=== PATIENT | male | born 1955 | race Caucasian/White ===

== ENCOUNTER 2017-11-24 06:05 | Inpatient (IN) | payer BC ==
--- NOTE | 2017-11-02 13:30 | HP ---
DATE OF ADMISSION: 11/24/2017 DATE OF SURGERY: 11/24/2017 REASON FOR ADMISSION: Chronically incarcerated enlarging complex ventral hernia. BRIEF HISTORY: This is a 59-year-old gentleman who I initially evaluated in October 2014 for a complex chronically incarcerated ventral hernia. At that time, I recommended he undergo a repair; however, due to personal issues, he failed to follow through. He was then re-evaluated by me in August 2015 since the hernia has gotten larger, and he wanted to discuss pros and cons of repair. Due to personal issues once again, he failed to follow through with operative repair. It is now August 2016, and the patient states the hernia has gotten much larger, and he has had bouts of pain in the area. He now wishes to have this hernia repaired. He denies having nausea or vomiting. No change in bowel habits. PAST MEDICAL HISTORY: No coronary artery disease, hypertension, or diabetes. PAST SURGICAL HISTORY: None. MEDICATIONS: None. ALLERGIES: None. SOCIAL HISTORY: The patient does not smoke. He drinks socially. PHYSICAL EXAMINATION: Lungs: Clear. Heart: Regular. Abdomen: Soft, nontender, and nondistended. He has a large soft tissue mass in the upper abdomen. The mass is approximately the size of a baseball. The skin overlying the mass is mildly thin consistent with chronic ischemia. He has a distorted umbilicus. IMPRESSION/PLAN: Chronically incarcerated enlarging ventral hernia, abdominal pain. This is a gentleman who had at least a 8-[id number]-ooulbzd of having this ventral hernia. Over this time course, the hernia clearly has gotten larger, and now he wishes to have this repaired since he is becoming even more symptomatic. We will plan for an operative repair of this hernia. The patient is scheduled for open ventral hernia repair with mesh. Component separation most likely needed at the time of surgery as well. Miguelina MARTINES [id number] cc: Kian Patterson MD
[2017-11-19 15:11] VITALS: BMI 27.1
[2017-11-24] MEDS ORDERED: TAMSULOSIN HCL 0.4 MG CAP.ER.24H (FP) ONE (06:25)
[2017-11-24] MEDS ORDERED: DEXAMETHASONE SOD PHOSPHATE/PF 10 MG/ML SDV ONE (07:40)
[2017-11-24] MEDS ORDERED: BUPIVACAINE HCL/PF (5 MG/ML) 30 ML VIAL IJ ONE (07:40)
[2017-11-24] MEDS ORDERED: MIDAZOLAM HCL 2 MG/2 ML SINGLE DOSE VIAL ONE (07:40)
[2017-11-24] MEDS ORDERED: PROPOFOL 20 ML ONE ×3 (07:50→08:11)
[2017-11-24] MEDS ORDERED: fentaNYL CITRATE 250 MCG/5 ML VIAL ONE (07:50)
[2017-11-24] MEDS ORDERED: ROCURONIUM BROMIDE 50 MG/5 ML VIAL ONE ×2 (07:51→08:37)
[2017-11-24] MEDS ORDERED: SUCCINYLCHOLINE CHLORIDE 200 MG/10 ML VIAL ONE (08:00)
[2017-11-24] MEDS ORDERED: ONDANSETRON 4 MG/2 ML VIAL ONE ×2 (08:37→09:29)
[2017-11-24] MEDS ORDERED: DEXAMETHASONE SOD PHOSPHATE 4 MG/1 ML VIAL ONE ×2 (08:37→09:13)
[2017-11-24] MEDS ORDERED: ONDANSETRON 4 MG/2 ML VIAL IVPUSH PRN ×2 (08:55→10:15)
[2017-11-24] MEDS ORDERED: ePHEDrine SULFATE 50 MG/1 ML AMPULE ONE (08:58)
[2017-11-24] MEDS ORDERED: LACTATED RINGERS SOLUTION 1,000 ML IV SCH (09:00)
[2017-11-24] MEDS ORDERED: BUPIVACAINE HCL/PF 2.5 MG/ML - 30 ML VIAL IJ ONE (09:13)
[2017-11-24] MEDS ORDERED: NEOSTIGMINE METHYLSULFATE 0.5 MG/ML - 10 ML MDV ONE (09:27)
[2017-11-24] MEDS ORDERED: GLYCOPYRROLATE 0.2 MG/1 ML VIAL ONE (09:29)
[2017-11-24] MEDS ORDERED: morphine CARPU-JECT 10 MG/1 ML DISP.SYRIN IVPB PRN (10:15)
[2017-11-24] MEDS ORDERED: ACETAMINOPHEN 325 MG TABLET (FP) PO PRN (10:15)
[2017-11-24] MEDS ORDERED: HYDROmorphone HCL CARPU-JECT 1 MG/1 ML DISP.SYRIN ONE (10:16)
[2017-11-24] MEDS: HYDROmorphone HCL CARPU-JECT 1 MG/1 ML DISP.SYRIN IVPUSH PRN ×2 (10:19→10:28)
[2017-11-24] MEDS ORDERED: IBUPROFEN 800 MG/8 ML IJ IVPB ONE (10:43)
[2017-11-24] MEDS: IBUPROFEN 800 MG/8 ML IJ IVPB SCH ×3 (10:43→23:47)
[2017-11-24] MEDS: D5-1/2NS+20 MEQ KCL - 20 MEQ/1,000 ML INFUS.BAG IV SCH (11:30)
--- NOTE | 2017-11-24 11:31 | OP ---
DATE OF OPERATION: 11/24/2017 PREOPERATIVE DIAGNOSIS: Chronically incarcerated enlarging complex ventral hernia. POSTOPERATIVE DIAGNOSIS: Chronically incarcerated enlarging complex ventral hernia. PROCEDURE: Open repair of chronically enlarging complex incarcerated ventral hernia with mesh, open bilateral component separation, partial omentectomy, rectus sheath block (administered by the senior it assistant). SURGEON: Slava Forrest MD BREAKER UNIT ASSEMBLER: Marin Cid MD ANESTHESIA: Jennyfer Tripathi MD (general). ESTIMATED BLOOD LOSS: Minimal. SPECIMEN: Portion of omentum. INDICATIONS/PROCEDURE: This is a 51-year-old gentleman who was initially evaluated in 2014 for a large complex ventral hernia. Patient was recommended to undergo repair at that time. However, due to personal issues, he was unable to do so, and over the ensuing 3 years, the hernia has gotten significantly worse and larger. He now has pain in the area and wishes to have this repaired. DESCRIPTION OF PROCEDURE: Patient was identified and appropriately positioned on the operating room table. After placement of general anesthesia, the abdomen was prepped and draped in the usual sterile fashion with ChloraPrep. A midline incision was made deep in the subcutaneous tissue. The hernia was identified in the subcutaneous tissue and dissected circumferentially down to the fascial level. The hernia was chronically incarcerated and due to its large incarcerated contents, the sac was opened, and in doing so, the patient had a sliding component, and a portion of the omentum was densely adherent to the hernia sac. The omentum had to be partially divided to resect the sac and reduce the hernia. The omentum was taken between clamps, divided, and tied with 0 Vicryl sutures. The specimen was handed off as hernia sac and portion of omentum. At this point, the abdomen was entered. The retrorectus space was entered on the patients right side by dividing the posterior rectus sheath. The sheath was then opened bluntly out laterally to the perforating vessels. The perforating vessels identified, and the fascia just medial to the perforating vessels was sharply divided, and the transversus was and released from the obliques and rectus junction. This was taken laterally out to the level of the anterior iliac spine and superiorly and inferiorly approximately 4-5 inches above and below the actual defect. The myofascial separation was completed on the right side, and a similar approach was done on the left side. The left retrorectus space was entered by dividing the posterior sheath. This space developed bluntly onto the perforating vessels. The fascia just medial to the perforating vessels was subsequently gently scored, and the transversus was divided from the obliques as well as the rectus at this level, and again, it was taken 4-5 inches above and below the actual defect. The midline defect was then recreated with a running 3-0 locking Maxon suture. The defect measured in a large 15 x 15 and a 10 x 15 piece of Phasix was used for the operative repair. The 15 x 15 was the Versatex ProGrip. The 2 pieces of mesh were sewn together with interrupted 3-0 Vicryl sutures. The Phasix was placed on the transversus side, and the ProGrip directly against the musculature of the mesh, seated out laterally and superiorly with the AbsorbaTack. The patient was then placed through 50 mmHg to seat the ProGrip. The mesh itself was irrigated. The operative field noted to be hemostatic. The midline fascia reapproximated with a running No. 1 PDS suture. The subcutaneous space was irrigated, and a 10 flat SAUL placed, brought through a separate stab incision in the subcutaneous tissue. The skin was all closed with tarik followed by Dermabond. At the conclusion of the case, sponge and instrument counts were correct. ATTESTATION: Brief operative note handwritten on the preprinted form. Prior to closure of the rectus sheath, the patient underwent injection of total of 40 mL of 0.25% Marcaine and 4 mg of Decadron as a rectus sheath block. This was placed directly into the rectus sheath on both sides by the senior it assistant. Miguelina MARTINES [id number] cc: Dr. Kian Patterson
[2017-11-25] MEDS: oxyCODONE HCL 5 MG TABLET PO PRN ×2 (02:30→12:26)
[2017-11-25] MEDS: IBUPROFEN 800 MG/8 ML IJ IVPB SCH ×2 (05:00→11:55)
[2017-11-25] MEDS: D5-1/2NS+20 MEQ KCL - 20 MEQ/1,000 ML INFUS.BAG IV SCH (09:17)
[2017-11-25] MEDS ORDERED: ENOXAPARIN NA (PORCINE) 40 MG/0.4 ML DISP.SYRIN SQ SCH (10:00)
[2017-11-25] MEDS ORDERED: amLODIPine BESYLATE 10 MG TABLET (FP) PO SCH (10:00)
[2017-11-25] MEDS ORDERED: PANTOPRAZOLE SODIUM 40 MG VIAL IVPUSH SCH (10:00)
--- NOTE | 2017-11-25 12:04 | DS ---
DATE OF ADMISSION: 11/24/2017 DATE OF DISCHARGE: 11/25/2017 ADMITTING DIAGNOSIS: Complex abdominal wall hernia. DISCHARGE DIAGNOSIS: Complex abdominal wall hernia. BRIEF HISTORY: A 62-year-old male who presented to [facility] for surgical management of a complex abdominal wall hernia. He underwent repair of this hernia utilizing mesh as well as component separation, myofascial release, and abdominal wall reconstruction. Please reference Dr. Slava Forrest's operative report for further details. He was admitted, and he is being discharged home today, November 25. He is tolerating diet, voiding, and ambulating. He will go ahead with his Ihsan-Acevedo drain. He will go ahead with a new prescription for Percocet, which he will take as needed for pain. He will resume his Norvasc blood pressure medication. He is okay to walk, okay to climb stairs. He will not lift anything more than 20 [address] is not [address]. He will likely require 2-4 weeks off work. He will follow with Dr. Forrest next week to be evaluated for drain removal. At the time of his discharge, his dressing is dry, and his binder is in place. DO ARTURO MCKINNEY/[id number]
--- NOTE | 2017-11-25 13:01 | PN ---
Progress Note (short form) - Note Progress Note: 62M POD1 s/p bilateral component separation, open repair complex ventral hernia under GA-ETT. Pt states that pain is well controlled, reports no anesthetic complications. AVSS. Continue current regimen.
[2017-11-25 13:46] VITALS: BP 135/66; PULSE 77; TEMP 97.1
--- NOTE | 2017-11-26 15:45 | PATH ---
Surgical Pathology Report Patient Name: ADRIANA FOX Med. Rec. #: [id number] /Age/Gender: 1955 (Age: 62) / M Account: [id number] Location: [facility] MED-SURG Taken: 11/24/2017 Received: 11/24/2017 Reported: 11/26/2017 Physicians: Slava Forrest Specimen(s) Received PORTION OF HERNIA SAC WITH ENCARCERATED OMENTUM Clinical History Ventral hernia without obstruction, unspecified abdominal pain Final Diagnosis SOFT TISSUE, ABDOMINAL WALL, EXCISION: FIBROMEMBRANOUS TISSUE CONSISTENT WITH HERNIA SAC, AND BENIGN ADIPOSE TISSUE. Electronically Signed Chris Aguilera M.D. Gross Description Received in formalin labeled "portion of hernia sac with incarcerated omentum," is a 10.0 x 2.3 x 1.0 cm portion of [place] fibromembranous tissue with an attached 10.5 x 10.0 x 2.2 cm portion of yellow, lobulated adipose tissue, consistent with a portion of omentum. Arabic Professor sections are submitted in one cassette. /11/25/2017 [facility]25[facility]
== END 2017-11-25 14:22 | disposition home or self-care (01) | DRG 355 ==
LOC: FASU 06:05 → FM/S 10:15 → UNDOADMIN 12:50 → FM/S 12:50
PROVIDERS: ADMIT Surgery; ATTEND Surgery
PROC: 0DBU0ZZ Excision of Omentum, Open Approach (ICD-10-PCS; 2017-11-24)
PROC: 0WUF0JZ Supplement Abdominal Wall with Synthetic Substitute, Open Approach (ICD-10-PCS; principal; 2017-11-24 08:22)
DX: K43.6 Other and unspecified ventral hernia with obstruction, without gangrene (principal)
CPT/HCPCS: 88302-TC; 94010; 94760

== ENCOUNTER 2018-01-15 08:46 | Emergency (ER) | payer BC ==
[2018-01-15 08:54] VITALS: TEMP 98; BMI 26.5
--- NOTE | 2018-01-15 09:09 | PDOC ---
History of Present Illness - General Chief Complaint: Injury Stated Complaint: LEFT FOOT PAIN Time Seen by Provider: 01/15/18 08:51 History Source: Patient Exam Limitations: No Limitations - History of Present Illness Initial Comments: 01/15/18 08:59 62-year-old male no past medical history here today complaining of left foot pain. Patient states he was walking the evening prior stepped on uneven curb and everted his foot slightly felt a cracking sensation. Was walking on it initially but this morning pain is severe also noted swelling and ecchymosis did not take anything for pain prior to arrival denies any associated knee or hip pain. Pain is moderate worse with weightbearing no previous surgeries on that foot or prior injuries does not take any blood thinners Past History - Past Medical History Allergies/Adverse Reactions: Allergies Allergy/AdvReac Type Severity Reaction Status Date / Time bee venom protein (honey bee) Allergy Severe Hives Verified 01/15/18 08:47 duloxetine HCl Allergy Severe generalized Verified 01/15/18 08:47 [From Cymbalta] blisters Penicillins Allergy Severe Hives Verified 01/15/18 08:47 Sulfa (Sulfonamide Allergy Intermediate rash Verified 01/15/18 08:47 Antibiotics) [Sulfa(Sulfonamide Antibiotics)] Home Medications: Ambulatory Orders Ibuprofen [Motrin -] 600 mg PO TID PRN #120 tablet 01/15/18 Anemia: No Asthma: No Cancer: No Cardiac Disorders: No CVA: No COPD: No CHF: No Dementia: No Diabetes: No GI Disorders: No Disorders: No HTN: Yes Hypercholesterolemia: No Liver Disease: No Seizures: No Thyroid Disease: No - Surgical History Abdominal Surgery: Yes (UMBILICAL HERNIA 11/21) - Immunization History Immunization Up to Date: No - Suicide/Smoking/Psychosocial Hx Smoking History: Never smoked Have you smoked in the past 12 months: No Information on smoking cessation initiated: No Hx Alcohol Use: Yes (FEW TIMES PER WEEK) Substance Use Type: Alcohol Hx Substance Use Treatment: No Review of Systems - Review of Systems Constitutional: No: Diaphoresis Respiratory: No: Cough Cardiac (ROS): No: Chest Pain, Edema : No: Burning, Dysuria Musculoskeletal: Yes: Joint Pain, Joint Swelling, Other (left foot pain and swelling) All Other Systems: Reviewed and Negative *Physical Exam - Vital Signs Last Vital Signs Temp Pulse Resp BP Pulse Ox 98 F 80 20 163/103 99 01/15/18 08:46 01/15/18 08:46 01/15/18 08:46 01/15/18 08:46 01/15/18 08:46 - Physical Exam General Appearance: Yes: Appropriately Dressed Respiratory/Chest: positive: Lungs Clear, Normal Breath Sounds Cardiovascular: positive: Regular Rhythm, Regular Rate, S1, S2 Gastrointestinal/Abdominal: positive: Normal Bowel Sounds, Flat Musculoskeletal: positive: Other (left lateral foot ttp, eccymosis and swelling present. lat/ med mall ankle NT FROM. knee/ hip FROM NT. distally nv intact 2_+ dp ) Integumentary: positive: Normal Color, Dry, Warm, Ecchymosis, Other Neurologic: positive: Fully Oriented, Alert, Normal Mood/Affect ED Treatment Course - RADIOLOGY Radiology Studies Ordered: Category Date Time Status ANKLE & FOOT-LEFT* [RAD] Stat Radiology 01/15/18 08:51 Ordered Medical Decision Making - Medical Decision Making 01/15/18 09:15 62 yo male s/p inversion injury, differential duffy or mt fx, ankle fx. plan xray ankle foot. pain control 01/15/18 10:05 pt with a duffy fx of fifth metatarsal. lizeth place in posterior splint and non weight bearing, crutches, podiatry followup. *DC/Admit/Observation/Transfer Diagnosis at time of Disposition: Duffy fracture - Discharge Dispostion Disposition: HOME Condition at time of disposition: Improved Decision to Admit order: No - Prescriptions Prescriptions: Ibuprofen [Motrin -] 600 mg PO TID PRN #120 tablet PRN Reason: Pain - Referrals Referrals: Song Heltno MD [Staff Physician] - - Patient Instructions Printed Discharge Instructions: Foot Fracture Additional Instructions: you should leave splint on until follow up . use crutches. do not put weight on your left foot. take ibuprofen 600 mg every 8 hours as needed for pain. ice and elevate to reduce swelling and pain for 48 - 72 hours. follow up wtih an orthopedist, DR Helton within one week. see referral information and call to schedule. - Post Discharge Activity
[2018-01-15] MEDS ORDERED: IBUPROFEN 600 MG TABLET (FP) PO ONE ×2 (09:16→09:50)
[2018-01-15 10:14] VITALS: BP 158/102; PULSE 78
== END 2018-01-15 10:47 | disposition home or self-care (01) ==
LOC: FER 08:46
PROC: 2W3RX1Z Immobilization of Left Lower Leg using Splint (ICD-10-PCS; principal; 2018-01-15)
DX: S92.355A Nondisplaced fracture of fifth metatarsal bone, left foot, initial encounter for closed fracture (principal); X58.XXXA Exposure to other specified factors, initial encounter; Y93.9 Activity, unspecified; Y92.9 Unspecified place or not applicable
CPT/HCPCS: 73610-TC-LT-FY; 73630-TC-LT; 99283-25

== ENCOUNTER 2023-04-07 16:48 | Emergency (ER) | payer BC, OTHER ==
[2023-04-07] MEDS ORDERED: diphenhydrAMINE HCL 25 MG CAPSULE (FP) PO ONE (16:53)
[2023-04-07] MEDS ORDERED: FAMOTIDINE 20 MG TABLET PO ONE (16:53)
[2023-04-07] MEDS ORDERED: predniSONE 20 MG TABLET (UD) PO ONE (16:53)
[2023-04-07 17:03] VITALS: RESP 18; BMI 26.4
[2023-04-07 18:20] VITALS: BP 142/88; PULSE 76; TEMP 98.6
== END 2023-04-07 19:01 | disposition home or self-care (01) ==
LOC: FER 16:48
DX: R21 Rash and other nonspecific skin eruption (principal); T78.40XA Allergy, unspecified, initial encounter
CPT/HCPCS: 99283-25